=== PATIENT | male | born 1950 | race Caucasian/White ===

== ENCOUNTER 2023-05-15 09:48 | Outpatient (CLI) | payer MEDICARE | END 2023-05-15 09:49 | disposition home or self-care (01) | LOC: CSHWCC 09:48 | PROVIDERS: ATTEND Nurse Practitioner Family | DX: Z48.815 Encounter for surgical aftercare following surgery on the digestive system (principal); Z93.2 Ileostomy status | CPT/HCPCS: 97139; G0463; 99203 ==